=== PATIENT | female | born 1980 | race Caucasian/White ===

== ENCOUNTER 2024-10-27 11:37 | Emergency (ER) | payer OTHER, SELFPAY ==
--- NOTE | ~2024-10-27 | CT_ITS ---
[facility] EXAMINATION: CT abdomen pelvis w con COMPARISON: None HISTORY: left sided abd pain, superficial and deep TECHNIQUE: Axial images were obtained through the abdomen, pelvis post administration of IV contrast. Oral contrast was also administered. Coronal reconstruction images were obtained from the axial views. CT scan performed using dose optimization techniques including the following automated exposure control; adjustment of mA and/or kV; use of iterative reconstruction technique. Automatic exposure control was used to reduce radiation dose. Permanent radiation dose record is archived to PACS. FINDINGS: CT abdomen: LUNG BASES: The lung bases are clear. The visualized portions of the heart and pericardium are unremarkable. LIVER: Unremarkable, liver contours intact, no lesions. SPLEEN: Unremarkable. KIDNEYS: Right Kidney: Unremarkable. No calculi. No hydronephrosis. Left Kidney: Unremarkable. No calculi. No hydronephrosis ADRENAL GLANDS: Unremarkable. PANCREAS: Unremarkable. GALLBLADDER/BILIARY: Unremarkable. No biliary dilatation. STOMACH AND ESOPHAGUS: Visualized stomach and esophagus within normal limits. BOWEL/MESENTERY: Moderate fecal content. There are inflammatory changes surrounding the distal descending colon with a small inflamed diverticulum in this location but no perforation or abscess. Appendix normal. Remaining mesentery normal. No dilated small bowel loops. ADENOPATHY/RETROPERITONEUM: No lymphadenopathy. AORTA/VASCULATURE: Normal caliber aorta. FREE FLUID OR FREE AIR: No free fluid.. CT pelvis: SOLID ORGANS/REPRODUCTIVE: IUD within the uterine cavity. BLADDER: Within normal limits. OSSEOUS STRUCTURES: No acute osseous abnormality.No suspicious lesions. OVERLYING SOFT TISSUES: Unremarkable. IMPRESSION: Acute diverticulitis. No perforation or abscess Reviewed, dictated and finalized at location A.
--- OUTSIDE RECORDS SUMMARY | 2024-10-27 11:41 | XMS_ITS | Clinical Summary ---
Author Organization [facility] Address [address] [place] [id number] Care Team Providers Care Kennel Helper Name Role Phone Anson Rivas MD Primary Care Provider [phone] Lacey Phillips MD Unavailable [phone] Allergies No known active allergies Medications levonorgestrel (MIRENA) IUD by intrauterine route. Active sulfaSALAzine (AZULFIDINE) 500 mg tablet Take 1 tablet (500 mg total) by mouth 6 (six) times a day Active losartan (COZAAR) 50 mg tablet 1 tablet (50 mg total) daily 5 Active folic acid (FOLVITE) 1 mg tablet Take 1 tablet (1,000 mcg total) by mouth daily 5 Active methotrexate 2.5 mg tablet Take 4 tablets (10 mg total) by mouth every 7 days 5 Active Active Problems No known active problems Encounters Date Type Department Care Team Description 10/08/2024 1:00 PM CDT Office Visit [facility] Medicine Dermatology [address] [facility] [address] [place] [phone] Lacey Phillips MD History of malignant melanoma (Primary Dx); Seborrheic keratosis; Lentigines; Multiple benign nevi; Inflamed seborrheic keratosis from Last 3 Months Surgical History Surgery Date Site/Laterality Comments US UNLISTED PROCEDURE LYMPH SYSTEM 11/23/2012 N/A Medical History Medical History Date Comments Melanoma (HCC) Social History Tobacco Use Types Packs/Day Years Used Date Smoking Tobacco: Never Smokeless Tobacco: Never Comments Unknown Sex and Gender Information Value Date Recorded Sex Assigned at Not on file 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 Gender Identity Not on file Sexual Orientation Not on file Obstetrics History Last Filed Vital Signs Vital Sign Reading Time Taken Comments Blood Pressure 139/75 05/12/2017 2:33 PM CDT Pulse 65 05/12/2017 2:33 PM CDT Temperature - - Respiratory Rate - - Oxygen Saturation 98% 05/12/2017 2:33 PM CDT Inhaled Oxygen Concentration - - Weight 99.6 kg (219 lb 8.2 oz) 05/12/2017 2:33 P M CDT Height 160 cm (5' 3) 11/16/2012 12:24 PM CDT Body Mass Index 38.88 11/16/2012 12:24 PM CDT Plan of Treatment Health Maintenance Due Date Last Done Comments Breast Cancer Screening-Mammogram 1978 Cervical Cancer Screening 1978 Colon Cancer Screening-Colonoscopy 1978 Depression Screening 1978 Hepatitis C Screening 1978 Hepatitis B Screening 01/25/1996 Regular Well Visit/Exam 18-64 01/25/1996 Pneumococcal vaccine <65 (1 of 2 - PCV) 1997 Zoster Vaccine (1 of 2) 1997 Influenza Vaccine (#1) 2024 8, 12/14/2017, 03/17/2015 DTaP/Tdap/Td Vaccine (2 - Td or Tdap) 03/17/2025 03/17/2015 HPV Vaccines Aged Out No longer eligi ble based on patient's age to complete this [place] [address] [facility] Care Teams Kennel Helper Relationship Specialty Start Date End Date Anson Rivas MD [address] [place] [address] PCP - General 06/07/16 Lacey Phillips MD [address] [place] [address] Finance Intern Dermatology 11/21/19
--- OUTSIDE RECORDS SUMMARY | 2024-10-27 11:41 | XMS_ITS | Clinical Summary ---
Author Organization [facility] Address [address] [place] [id number] Care Team Providers Care Test Architect Name Role Phone Lacey Wayne Primary Care Provider [phone] Social History Tobacco Use Types Packs/Day Years Used Date Smoking Tobacco: Never Assessed Comments Unknown Sex and Gender Information Value Date Recorded Sex Assigned at Not on file Legal Sex Female 1:21 PM CDT Gender Identity Not on file Sexual Orientation Not on file Plan of Treatment Health Maintenance Due Date Last Done Comments Cervical Cancer Screening Pa p Smear (Age 30 to 64) Every 3 Years 1978 Colorectal Cancer Screening Colonoscopy (10 Years) 1978 Annual Physical 1981 Hepatitis C 01/25/1996 DTaP, Tdap and Td Vaccines ( 1 - Tdap) 1997 Hepatitis B Vaccines (1 of 3 - 19+ 3-dose series) 1997 Cervical Cancer Screening Pa p with HPV Testing (Age 30 to 64) Every 5 Years 01/25/2008 Cervical Cancer Screening with HPV 01/25/2008 Mammogram Screening 2018 COVID-19 Vaccine (2023-2 5 season) 2024 Meningococcal B Vaccine Aged Out No l onger eligible based on patient's age to complete this topic Meningococcal Vaccine Aged Out No patience natan eligible based on patient's age to complete this topic Pneumococcal Vaccine: Pediat rics (0 to 5 Years) and At-Risk Patients (6 to 49 Years) Aged Out No longer eligible b ased on patient's age to complete this topic RSV Immunizations Under 20 Months Aged Out No longer eligible based on patient's age to complete this topic Insurance [facility]ITY [facility] Care Teams Test Architect Relationship Specialty [place] [address] [place] [address] PCP - General PHYSICIAN SAMPLE MAKER 11/24/21
[2024-10-27 11:42] VITALS: BP 144/77; PULSE 102; RESP 19; TEMP 36.6; O2SAT 99
--- OUTSIDE RECORDS SUMMARY | 2024-10-27 12:11 | XMS_ITS | Clinical Summary ---
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
--- OUTSIDE RECORDS SUMMARY | 2024-10-27 12:11 | XMS_ITS | Clinical Summary ---
Author Organization [facility] Address [address] [place] [id number] Care Team Providers Care Masticator Name Role Phone Lacey Wayne Primary Care Provider [phone] Social History Tobacco Use Types Packs/Day Years [...] patient's age to complete this topic Insurance [facility] COMMUNITY C[facility] Care Teams Masticator Relationship Specialty [place] [address] [place] [address] PCP - General PHYSICIAN CHANNELER OUTSOLE 11/24/21
--- NOTE | 2024-10-27 12:48 | ED_ITS ---
HPI - Skin/Abscess/Foreign Bdy General Chief complaint: Skin/Abscess/Foreign Body Stated complaint: Left side pain since - Time Seen by Provider: 10/27/24 11:57 Source: patient Mode of arrival: ambulatory Limitations: no limitations History of Present Illness HPI narrative: Patient presents with report of a rash at her groin and abdomen since Monday. It was initially reported that this was hives but Not pruritic. Was also initially reported that this was on the left side however she notes that she has had a proximal thigh rash bilaterally which then seemed to affect the left side of her mons pubis and bilateral pannus. She then developed left-sided abdominal pain on . Now she seems to have hypersensitivity to touch of the left side of her abdomen at the skin but she also states that it feels like the pain is deep inside, pain spreading proximally up the left side of her abdomen. Her last bowel movement was this morning at 9:00 a.m.. She denies any diarrhea or constipation but notes that her stools were soft and little/scant. This has never happened before. She denies any new soaps, detergents or other identifiable causes of the rash. She does note that she has been under a lot of stress. Pain seems to be worse with movement. She denies any hematuria, dysuria, urgency or frequency. No fevers or chills. She is having some low back pain. She notes that the pain feels like needles to touch. History melanoma. Related Data Allergies Allergy/AdvReac Type Severity Reaction Status Date / Time sweet potatoes Allergy Intermediate Hives Uncoded 10/27/24 11:39 PMFSH Past Medical History Medical History History of melanoma Family History Family History (Updated 12/22/17 @ 08:58 by DOCTOR UNKNOWN) Mother Family history of malignant neoplasm of breast in first degree relative, Onset Age: 35 Social History Social History Smoking status: Never smoker Alcohol intake: current Exam 2 Narrative: GENERAL: Well-appearing, well-nourished, and in no acute distress. HEAD: Normocephalic, atraumatic. EYES: Non injected, non icteric ENT: Nares clear, no rhinorrhea or epistaxis. Gross auditory acuity intact. NECK: Supple. No meningismus. CHEST: Speaking in full sentences. No respiratory distress. HEART: Regular rate and rhythm. . ABDOMEN: Soft, nondistended. No rigidity or guarding. Not peritoneal. No tenderness to palpation though patient's position and body habitus limits adequate physical exam. EXTREMITIES: Normal range of motion. No lower extremity edema. SKIN: Warm, dry. Will circumscribed multiple papules that are erythematous, subcentimeter in size, located on proximal bilateral thighs. No vesicles or drainage. No central umbilication. No rashes noted on mons pubis although there are some scattered similar appearing lesions although less intensely under bilateral pannus. Otherwise no rash overlying the abdomen. NEURO: No focal deficits. Alert and oriented. Answering questions. Following commands. Normal speech without aphasia or dysarthria. PSYCH: Normal mood and affect. Course Vital Signs Vital signs: Vital Signs Temperature 97.8 F 10/27/24 11:42 Pulse Rate 102 H 10/27/24 11:42 Respiratory Rate 19 10/27/24 11:42 Blood Pressure 144/77 H 10/27/24 11:42 Pulse Oximetry 99 10/27/24 11:42 Oxygen Delivery Room Air 10/27/24 11:42 Temperature 97.8 F 10/27/24 11:42 Pulse Rate 81 10/27/24 14:40 Respiratory Rate 17 10/27/24 14:40 Blood Pressure 130/82 10/27/24 14:40 Pulse Oximetry 96 10/27/24 14:40 Oxygen Delivery Room Air 10/27/24 11:42 MDM - Skin/Abscess/Foreign Bdy MDM Narrative Medical decision making narrative: Patient presents with a rash. Was initially reported that this is on the left side however the rashes on bilateral proximal thighs and started on Monday and has seemingly started to ascend over the last few days. She then started developed left-sided abdominal pain on . It was initially reported as hives however although they are erythematous and raised, no pruritic nature. Appear to be contact dermatitis although no identifiable etiology. However, she also notes that she has abdominal pain in that this pain seems to feel like it is inside rather than just the superficial pain she is experiencing in regards to the hypersensitivity to touch on her abdomen. In the emergency department she is afebrile with vital signs notable for hypertension and mild tachycardia. test negative. Abnormal urinalysis although with moderate squamous cells. CT scan as below. Patient does not have complaints of dysuria making colovesical fistula unlikely and not seen on CT. Outpatient PO antibiotics covering gram negative aerobic and anaerobic bacteria will be initiated in the form of cipro 500mg BID and metronidazole 500mg q 6 hr for 7 days. Given first dose in the ED. SHe is also given prescriptions for ibuprofen and acetaminophen ; with narcotics for breakthrough pain for pain control. Steroids for dermatitis given body surface area involvement. Received phone call from ralph Villa at [facility] noting that they have on file that patient has a percocet allergy. However, she has successfully received morphine here. Advised follow-up with primary care physician and given contact information/referral for 1 if she does not have 1. Otherwise stable for discharge. Differential Diagnosis Differential diagnosis: Likely abscess of skin or subcutaneous tissue, viral exanthem, urticaria (/hives), herpes zoster, allergic reaction to drug, eczema, insect bites, contact dermatitis and other ( dermatitis herpetiformis; erythema multiforme) Lab Data Attestation: I reviewed the patient's lab results. 10/27/24 12:57 10/27/24 12:57 Labs: Lab Results 10/27/24 10/27/24 Range/Units 12:57 12:59 WBC 7.9 (4.5-10.0) K/mm3 RBC 4.13 L (4.2-5.4) M/mm3 Hgb 12.3 (12.0-15.0) g/dL Hct 38.1 (37.0-47.0) % MCV 92.3 (80-100) fl MCH 29.8 (26-34) pg MCHC 32.3 (32-36) g/dl RDW 14.2 (11.5-14.5) % Plt Count 256 (150-375) k/mm3 MPV 9.4 (7.4-10.4) fl Immature Gran % (Auto) 0.5 (0-0.5) % Neut % (Auto) 73.2 H (45.5-73.1) % Lymph % (Auto) 14.5 L (18.3-44.2) % Pratt % (Auto) 8.5 (2.6-8.5) % Eos % (Auto) 3.0 (0-4.4) % Baso % (Auto) 0.3 (0.2-1.2) % Lymph # (Auto) 1.14 (0.9-3.2) K/mm3 Pratt # (Auto) 0.7 H (0.1-0.6) K/mm3 Eos # (Auto) 0.2 (0-0.3) K/mm3 Baso # (Auto) 0.0 (0.0-0.1) K/mm3 Abs Immat Gran (auto) 0.04 H (0.00-0.031) K/mm3 Absolute Neuts (auto) 5.8 (1.3-6.7) K/mm3 Absolute Nucleated RBC 0.000 (0.0-0.012) K/mm3 Nucleated RBC % 0.0 (0.0-0.2) % Sodium 137 (137-145) mmol/L Potassium 4.0 (3.4-5.0) mmol/L Chloride 103 (98-107) mmol/L Carbon Dioxide 27 (22-30) mmol/L Anion Gap 7 (4-12) mmol/L BUN 13 (7-17) mg/dL Creatinine 0.80 (0.7-1.0) mg/dL Estim Creat Clear Calc 93 ml/min Estimated GFR > 60 (59 - ) Glucose 112 H (65-110) mg/dL Calcium 8.7 (8.4-10.2) mg/dL Total Bilirubin 0.4 (0.2-1.3) mg/dL AST 34 (14-36) U/L ALT 27 (6-35) U/L Alkaline Phosphatase 82 (38-126) U/L Total Protein 8.2 (6.3-8.2) g/dL Albumin 4.3 (3.5-5.1) g/dL Lipase 60 (23-300) U/L Urine Color Dark yellow (Yellow) Urine Appearance Cloudy H (Clear) Urine pH 5.0 (5.0-9.0) Ur Specific Ransom 1.026 (1.001-1.035) Urine Protein Trace (Negative) mg/dL Urine Glucose (UA) Negative (Negative) mg/dL Urine Ketones Trace H (Negative) mg/dL Ur Blood (Man) Trace (Negative) Urine Nitrate Negative (Negative) Urine Bilirubin Negative (Negative) Urine Urobilinogen 1.0 (<2.0) mg/dL Leukocyte Esterase Rfl 3+ H (Negative) CASSANDRA/UL Urine RBC 0-2 (0-2) /hpf Urine WBC >100 H (0-3) /hpf Ur Squamous Epith Cells Moderate (Few) /hpf Urine Bacteria 2+ H /hpf Urine Casts 0-2 POC Urine HCG, Qual Negative (Negative) Imaging Data Radiologist's impression: Impressions Abdomen/Pelvis CT 10/27/24 15:16 IMPRESSION: Acute diverticulitis. No perforation or abscess Discharge Plan Discharge Clinical Impression: Contact dermatitis, Diverticulitis Patient Disposition: Home Condition: Stable Instructions: Antibiotic Form, Diverticulitis (ED), Contact Dermatitis (ED), Narcotic Safety (ED), Diverticulitis Diet (ED) Additional Instructions: Your rash appears to be a contact dermatitis. Short course of steroid is prescribed. Try to take before 9am moving forward. You were found to have diverticulitis. Take the combination of antibiotics; received first dose in ED. Do not drink alcohol while taking Flagyl. Acetaminophen/Tylenol (maximum 4000 mg per day) is safe to take with NSAIDs (ibuprofen/Motrin) for pain relief. For breakthrough pain, short course of opioid/narcotic medications been prescribed. Follow-up with your primary care physician. You do not have 1 the name of a doctor is listed below. Return to the emergency department any new or worsening symptoms. Patient Language: Belarusian Prescriptions: New prednisone 20 mg tablet 20 mg PO DAILY 5 Days Qty: 5 0RF Rx Instructions: start 10/28 (first dose in ed 10/27) ibuprofen 600 mg tablet 600 mg PO TID PRN (Reason: pain) Qty: 30 0RF acetaminophen 500 mg capsule 1,000 mg PO Q6H PRN (Reason: pain) Qty: 30 0RF ciprofloxacin HCl [Cipro] 500 mg tablet 500 mg PO Q12H 7 Days Qty: 13 0RF Rx Instructions: received first dose ED 10/27 metronidazole 500 mg tablet 500 mg PO QID 7 Days Qty: 27 0RF Rx Instructions: rec'd first dose ED 10/27 oxycodone 5 mg tablet 5 mg PO Q8H PRN (Reason: pain) Qty: 10 0RF Follow-up/Referrals: Jamie Hernández MD [Physician, Family Practice] UNKNOWN,DOCTOR [Primary Care Provider] Stand Alone Forms: Work/School Release IP Time of Disposition: 15:55
[2024-10-27 13:01] LABS: BEDSIDEPREGUCG Negative (Negative)
[2024-10-27 13:08] LABS: Hematocrit 38.1 % (37.0-47.0); Hemoglobin 12.3 g/dL (12.0-15.0); Immature Granulocyte Percent A 0.5 % (0-0.5); Lymphocytes Absolute Auto 1.14 K/mm3 (0.9-3.2); Mean Corpuscular HGB Conc 32.3 g/dl (32-36); Mean Corpuscular Hemoglobin 29.8 pg (26-34); Mean Corpuscular Volume 92.3 fl (80-100); Nucleated Red Blood Cells Absolute Auto 0.000 K/mm3 (0.0-0.012); Nucleated Red Blood Cells Perc 0.0 % (0.0-0.2); Platelet Count Result 256 k/mm3 (150-375); Red Blood Count 4.13 M/mm3 (4.2-5.4); White Blood Count 7.9 K/mm3 (4.5-10.0)
[2024-10-27 13:16] LABS: Add Urine Microscopic? YES; Appearance Urine Cloudy (Clear); Glucose Urine UA Negative (Negative); Leukocyte Esterase Ur 3+ LEU/UL (Negative); Nitrate Urine Negative (Negative); Non Pathogenic Casts 0-2; Specific Grav Ur 1.026 (1.001-1.035)
[2024-10-27 13:23] LABS: Alanine Aminotransferase 27 U/L (6-35); Albumin Level 4.3 g/dL (3.5-5.1); Alkaline Phosphatase 82 U/L (38-126); Anion Gap 7 mmol/L (4-12); Aspartate Amino Transferase 34 U/L (14-36); Bilirubin,Total 0.4 mg/dL (0.2-1.3); Blood Urea Nitrogen 13 mg/dL (7-17); Calcium 8.7 mg/dL (8.4-10.2); Carbon Dioxide 27 mmol/L (22-30); Chloride 103 mmol/L (98-107); Estimated CRCL calculation 93 ml/min; Estimated Glomerular Filt Rate > 60; Glucose 112 mg/dL (65-110); Lipase 60 U/L (23-300); Potassium 4.0 mmol/L (3.4-5.0); Sodium 137 mmol/L (137-145); Total Protein 8.2 g/dL (6.3-8.2)
[2024-10-27 13:44] VITALS: BP 133/83; PULSE 86; RESP 15; O2SAT 97
[2024-10-27] MEDS: MORPHINE SULFATE (*CRX) 2 MG/ML INJ 4 MG IV PUSH (13:55)
[2024-10-27 14:40] VITALS: BP 130/82; PULSE 81; RESP 17; O2SAT 96
[2024-10-27] MEDS: CIPROFLOXACIN 500 MG TAB PO (15:52)
== END 2024-10-27 16:07 | disposition home or self-care (01) ==
PROVIDERS: Emergency Provider Student in an Organized Health Care Education/Training Program
DX: K57.92 Diverticulitis of intestine, part unspecified, without perforation or abscess without bleeding (principal); L25.9 Unspecified contact dermatitis, unspecified cause
CPT/HCPCS: 36415; 74177; 80053; 81001; 81025; 83690; 85025; 96374; 99284; A9270; J2270; J7512; Q9967